=== PATIENT | male | born 1990 ===

== ENCOUNTER 2024-11-01 19:37 | Emergency (ER) | payer BC, SELFPAY ==
[2024-11-01 20:03] VITALS: BP 146/89
[2024-11-01 21:52] VITALS: BMI 29.4
--- NOTE | 2024-11-01 22:47 | ED.SKININJ ---
HPI-Injury
General
Chief Complaint: Bite
Source: patient
Exam Limitations: none
Time Seen by Provider: 11/01/24 22:37
Nursing documentation reviewed up to this point in time: agreed with
History of Present Illness-Injury
Initial Injury comments:
This is a 33-year-old gentleman with no significant past medical history save for mild intermittent asthma. 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 He
states the dog was approximately 60 pounds and he believes the dog belongs to one of his neighbors. He has seen the same dog previously. He also admits that the dog seemed to be in a playful manner kind of jumping, wagging his tail and he believes
the dog inadvertently scratched his left ankle, through his pant leg as he had a tear in his left lower pant leg. He states the dog seem to playfully jump around a bit and then ran off.
Patient denies pain, denies bleeding. He washed scraped thoroughly with soap and water.
He did question 1 neighbor regarding their dog but as it turns out that neighbors dog is not the dog that he encountered but believes the dog he encountered resides just 1 or 2 houses next-door.
Past History
Past History
ED Past Medical History: Asthma
ED Past Surgical History: None
Social History
Tobacco: Non-smoker
Personal:
Living: with family
Employment: Employed
Family History
Family History: Other (Noncontributory)
Phy Exam
Physical Exam
Physical Exam:
PHYSICAL EXAMINATION:
General: no apparent distress, not acutely ill. 33-year-old gentleman appears his stated age, bright and alert, pleasant, appears in no acute distress.
Neuro: alert and oriented. no focal neurological deficits
Psychiatric: well kept. interactive and cooperative
Musculoskeletal: [Left medial ankle has a single, linear, horizontal very superficial abrasion. There is no puncture wound, no soft tissue swelling, no erythema, no bleeding, no ecchymosis. No palpable tenderness. Full
ankle range of motion without difficulty nor pain.]
Course
Orders/Labs/Results
Orders:
Orders
11/01/24 22:47
Tetanus/Diphth/Acelpertussis [Adacel] 0.5 ml IM .ONCE ONE
Vital Signs
Initial and Last Documented VS:
Initial Vital Signs
Temp Pulse Resp BP Pulse Ox
98.2 F 63 18 146/89 99
11/01/24 20:03 11/01/24 20:03 11/01/24 20:03 11/01/24 20:03 11/01/24 20:03
Last Documented Vital Signs
Temp Pulse Resp BP Pulse Ox
98.2 F 63 18 146/89 99
11/01/24 20:03 11/01/24 20:03 11/01/24 20:03 11/01/24 20:03 11/01/24 20:03
MDM/Problems Addressed
Differential Diagnosis Includes:
Concern for very superficial dog bite wound versus superficial scratch from a paw.
Overall history of event appears more consistent with a scratch such as the dog was jumping up, in friendly manner to greet the patient while he was running.
Patient is almost certain that the dog belongs to one of his neighbors.
Patient has been reassured that there has been no cases of rabies in domestic dogs in quite some time and thus no indication for rabies prophylaxis.
He is due for Tdap vaccine which will be given tonight.
Singular linear abrasion is quite superficial, no need for oral antibiotics. Recommend local wound care with bacitracin.
Follow-up with PCP as needed especially if wound becomes red, inflamed etc.
*Pulse Oximetry
Patient hypoxic: no
*Critical Care Note
Total Time (30-74mins, 75-104mins- exclusive of procedures): Not Applicable
ED Attending Note
-
Portions of this chart may have been created with voice recognition software.� Occasional wrong word or��sound alike� substitutions may have occurred due to the inherent limitations of voice recognition software.
Discharge Plan
Departure
Patient Disposition: Home (Routine Discharge)
Date of Disposition: 11/01/24
Time of Disposition: 22:48
Patient with high blood pressure during this ER visit?: Yes
Condition: Good
Discharge Problem:
superficial abrasion left ankle, possible dog bite wound
Instructions: Animal Bites (DC), Tdap vaccine, BLOOD PRESSURE
Referrals:
Kizzy Maldonado, DO [Family Provider] - As needed
Interventions
Interventions:
*Risk Screen - Suicide Last Done: 11/01/24 21:52
*General Assessment Last Done: 11/01/24 21:52
*Neglect/Abuse Screening Last Done: 11/01/24 21:52
*ED- Fall Risk Assessment Last Done: 11/01/24 21:52
*ED COVID-19 Vaccine History Last Done: 11/01/24 21:52
ED-Skin Assessment Last Done: 11/01/24 21:52
Discharge Date and Time
Print Language: ESTONIAN
[2024-11-01] MEDS: ADACEL 0.5 ML IM (22:53)
== END 2024-11-01 23:10 | disposition home or self-care (01) ==
LOC: EMR 19:37
PROVIDERS: EMERGENCY PHYSICIAN Emergency Medicine; FAMILY PHYSICIAN Family Medicine
DX: S90.512A Abrasion, left ankle, initial encounter (principal); W54.0XXA Bitten by dog, initial encounter; Z23 Encounter for immunization; J45.20 Mild intermittent asthma, uncomplicated
CPT/HCPCS: 99282; 90471; 90715

== ENCOUNTER 2024-11-04 14:59 | Emergency (ER) | payer BC, SELFPAY ==
[2024-11-04 15:03] VITALS: BP 138/92
[2024-11-04 15:32] LABS: % Basophils 0.8 % (0-2); % Eosinophils 2.3 % (0-6); % Immature Granulocytes 0.2 % (0-0.5); % Lymphocytes 38.9 % (20.5-51.1); % Monocytes 6.7 % (1.7-9.3); % Neutrophils 51.1 % (42.2-75.2); Absolute Basophils 0.1 10^3/uL (0-0.2); Absolute Eosinophils 0.2 10^3/uL (0-0.7); Absolute Lymphocytes 2.5 10^3/uL (1.2-3.4); Absolute Monocytes 0.4 10^3/uL (0.1-0.6); Absolute Neutrophils 3.3 10^3/uL (1.4-6.5); Hematocrit 45.3 % (39.0-52.0); Hemoglobin 15.2 g/dL (13.0-18.0); Mean Corp Hgb Conc. 33.6 g/dL (33.0-37.0); Mean Corpuscular Hgb 30.3 pg (27.0-31.0); Mean Corpuscular Volume 90.2 fL (80.0-94.0); Mean Platelet Volume 9.6 fL (7.4-10.4); Nucleated Red Blood Cells % 0 % (-); Platelet Count 221 10^3/uL (130-400); Red Blood Cell Count 5.02 10^6/uL (4.70-6.10); Red Cell Dist. Width 12.2 % (11.5-14.5); White Blood Cell Count 6.4 10^3/uL (4.8-10.8)
[2024-11-04 15:45] LABS: ALT (SGPT) 34 U/L (0-50); AST (SGOT) 29 U/L (17-59); Alkaline Phosphatase 66 U/L (38-126); Blood Urea Nitrogen 17 mg/dl (9-20); Carbon Dioxide 30 mmol/L (22-30); Chloride 101 mmol/L (98-107); Glucose 97 mg/dl (70-99); Potassium 3.8 mmol/L (3.5-5.1); Sodium 140 mmol/L (135-145); Total Bilirubin 0.9 mg/dl (0.2-1.3); Total Protein 7.9 g/dl (6.3-8.2); eGFR > 60.00
--- NOTE | 2024-11-04 17:03 | ED.GENMED ---
History of Present Illness
<GABRIELLA Jacobsen - Last Filed: 11/04/24 18:43>
General
Chief Complaint: Malaise
Source: patient
Exam Limitations: none
Time Seen by Provider: 11/04/24 16:57
Nursing documentation reviewed up to this point in time: agreed with
History of Present Illness
History of Present Illness:
Patient is a 33-year-old female who presents to the ER for evaluation. Patient was seen here 3 days ago. The day prior, patient was running in the dark and reports he'either got bit or scratched ' by an animal in his right ankle lower leg
region. He did not visibly see the animal and was unsure of what animal bit him.
He does recall however running in front of his neighbors house that have a dog. He is unsure if this dog bit him.
He was updated on tetanus during previous ED visit.
He presents to the ER today because he has felt very fatigued for the past 3 days. yesterday he was nauseous. Today he felt nauseous and had a headache.
He denies any fevers.
he does not feel achy.
he denies any numbness tingling.
He came to the ER because he was concerned that the symptoms may have the rabies especially because he is unclear of what type of animal bit him.
Past History
<GABRIELLA Jacobsen - Last Filed: 11/04/24 18:43>
Past History
ED Past Medical History: Asthma
ED Past Surgical History: None
Social History
Tobacco: Non-smoker
Personal:
Living: with family
Employment: Employed
Family History
Family History: Other (Noncontributory)
Review of Systems
<GABRIELLA Jacobsen - Last Filed: 11/04/24 18:43>
Review of Systems
Allergies reviewed?: Yes
All Other Systems: ROS reviewed and negative except as documented in HPI and ROS
Constitutional: Reports fatigue; Denies fever or chills
Respiratory: Reports no symptoms
Cardiac: Reports no symptoms
ABD/GI: Reports nausea; Denies vomiting
: Reports no symptoms
Musculoskeletal: Reports no symptoms
Neurological: Reports headache
Hematologic/Lymphatic: Reports no symptoms
Psychiatric: Reports no symptoms
Phy Exam
<GABRIELLA Jacobsen - Last Filed: 11/04/24 18:43>
General Physical Exam
General Presentation: no apparent distress
General age: appears stated age
General Skin: warm and dry
General Habitus: normal
General Mental: alert
General Hydration: appears well hydrated
Neurological Exam
Neurological Exam: alert and oriented x3
Musculoskeletal Exam
Musculoskeletal Exam: other (right ankle with superficial abrasion/scratch, no surrounding erythema )
Skin Exam
Skin Exam: normal color and warm/dry
Psychiatric Exam
Psychiatric Exam: normal mood/affect
Course
<GABRIELAL Jacobsen - Last Filed: 11/04/24 18:43>
Orders/Labs/Results
Orders:
Orders
11/04/24 15:08
Complete Blood Count/With Diff Urgent
Comprehensive Metabolic Panel Urgent
11/04/24 15:08
11/04/24 15:08
Vital Signs
Initial and Last Documented VS:
Initial Vital Signs
Temp Pulse Resp BP Pulse Ox
97.9 F 56 16 138/92 100
11/04/24 15:03 11/04/24 15:03 11/04/24 15:03 11/04/24 15:03 11/04/24 15:03
Last Documented Vital Signs
Temp Pulse Resp BP Pulse Ox
97.9 F 77 16 143/98 100
11/04/24 15:03 11/04/24 18:02 11/04/24 18:02 11/04/24 18:02 11/04/24 18:02
Surgery Manager consulted with Physician
Surgery Manager consulted with physician?: Yes
Name of Physician Consulted: barak
<Angelica Miller MD - Last Filed: 11/04/24 18:21>
Orders/Labs/Results
Orders:
Orders
11/04/24 15:08
Complete Blood Count/With Diff Urgent
Comprehensive Metabolic Panel Urgent
11/04/24 15:08
11/04/24 15:08
Vital Signs
Initial and Last Documented VS:
Initial Vital Signs
Temp Pulse Resp BP Pulse Ox
97.9 F 56 16 138/92 100
11/04/24 15:03 11/04/24 15:03 11/04/24 15:03 11/04/24 15:03 11/04/24 15:03
Last Documented Vital Signs
Temp Pulse Resp BP Pulse Ox
97.9 F 77 16 143/98 100
11/04/24 15:03 11/04/24 18:02 11/04/24 18:02 11/04/24 18:02 11/04/24 18:02
<GABRIELLA Jacobsen - Last Filed: 11/04/24 18:43>
MDM/Problems Addressed
MDM/Problems Addressed:
As documented patient was scratched by a most likely a dog several days ago and received tetanus however was concerned about feeling a little fatigued and nauseous. He has been questioning if he was scratched/bitten by a neighbors dog or another
animal. He however did see this dog while he was running by his neighbors house. Because it was dark outside it was unclear. He presents to the very well-appearing in no acute distress denies any fever or joint aches no numbness tingling or
neurological complaints. On exam he has a very superficial scratch to his ankle that does not appear infected. He will find out if dog shots are up-to-date however if not because he is domesticated dog he just needs to be quarantined. Case
reviewed with ED attending will hold off on any concern for rabies . pt well appearing
<GABRIELLA Jacobsen - Last Filed: 11/04/24 18:43>
*Critical Care Note
Total Time (30-74mins, 75-104mins- exclusive of procedures): Not Applicable
ED Attending Note
<GABRIELLA Jacobsen - Last Filed: 11/04/24 18:43>
-
Portions of this chart may have been created with voice recognition software.� Occasional wrong word or��sound alike� substitutions may have occurred due to the inherent limitations of voice recognition software.
<Angelica Miller MD - Last Filed: 11/04/24 18:21>
ED Attending Note
Patient seen and examined by attending physician: Yes
I performed the substantive portion of visit, reviewed & personally made and approve the management plan that is documented in note by myself or AMANDA.: Yes
ED Attending Note:
Very pleasant 33-year-old male who was running the other day in the dark, thinks that the dog scratched him on the inner aspect of his lower leg. He shows me a picture where his close were ripped. He strongly suspects it was a neighborhood dog and
plans to find out about rabies vaccination status upon leaving the emergency department here. Patient was given a tetanus when he was here very recently. Risk of rabies thought to be extremely extremely low. Wound is a superficial scratch, does
not appear to be a puncture wound, bite, etc. Patient does have vague symptoms of fatigue and nausea which are intermittent. Long discussion with patient regarding importance of follow-up and reasons return to the ER. At this time I do not
suspect that he has appreciable risk of rabies exposure.
Discharge Plan
Departure
Patient Disposition: Home (Routine Discharge)
Date of Disposition: 11/04/24
Time of Disposition: 18:34
Patient with high blood pressure during this ER visit?: Yes
Condition: Fair
Covid-19: Not Applicable
Discharge Problem:
Fatigue
Instructions: Fatigue (DC), BLOOD PRESSURE
Referrals:
Kizzy Maldonado, [Family Provider] -
Activity Restrictions/Additional Instructions:
As discussed please speak with your neighbor regarding dog's vaccination status. Follow-up with your family doctor for reevaluation and return if any worsening of symptoms
Interventions
Interventions:
*Risk Screen - Suicide Last Done: 11/04/24 15:04
*Neglect/Abuse Screening Last Done: 11/04/24 15:04
Discharge Date and Time
Print Language: SLOVAK
[2024-11-04 18:02] VITALS: BP 143/98
== END 2024-11-04 18:47 | disposition home or self-care (01) ==
LOC: EMR 14:59
PROVIDERS: Emergency Medicine; EMERGENCY PHYSICIAN Emergency Medicine; FAMILY PHYSICIAN Family Medicine
DX: R53.83 Other fatigue (principal); R11.0 Nausea; J45.909 Unspecified asthma, uncomplicated
CPT/HCPCS: 99283; 80053; 85025